=== PATIENT | male | born 1945 | race Caucasian/White ===

== ENCOUNTER 2018-06-01 06:36 | Inpatient (IN) | payer OTHER, SELFPAY ==
[2018-05-17 08:15] VITALS: BMI 35.4
[2018-06-01] VITALS (13 sets, daily range): BP systolic 94–130; BP diastolic 53–77; PULSE 60–73; RESP 12–19; TEMP 36.1–36.9; O2SAT 94–100; BMI 32.7
--- NOTE | 2018-06-01 | DI.RAD.S_ITS ---
PROCEDURE: XR LUMBAR SPINE 2-3V INDICATIONS: back surgery TECHNIQUE: 2 views of the lumbar spine were acquired. COMPARISON: [facility], CR, XR LUMBAR SPINE 2 OR 3 VIEWS, 03/22/2018, 14:44. FINDINGS: Bones: AP and lateral images were obtained in surgery documenting placement of disc spacers at L2-3, L3-4, L4-5 and L5-S1. Posterior fusion with transpedicular screws and vertical connecting rods bilaterally L2-S1 Soft tissues: Overlying bowel gas pattern is normal. No suspicious soft tissue calcifications. IMPRESSION: Intraoperative imaging of posterior discectomy and fusion L2-3 through L5-S1 Dictated by: Anish Azar M.D. on 06/01/2018 at 15:23 Approved by: Anish Azar M.D. on 06/01/2018 at 15:25
[2018-06-01] MEDS: LACTATED RINGERS 1,000 ML 42 ML IV ×2 (07:20→11:25)
--- NOTE | 2018-06-01 07:28 | PM.PREOP ---
Pre-operative Note Interval Note Pre-op Check: Yes History & Physical Reviewed by Physician and Yes Exam Performed Changes: No
--- NOTE | 2018-06-01 07:52 | P.OP_ITS ---
Operative Date/Time/Diagnoses Date of procedure: 06/01/18 Time of procedure: 15:30 Pre-op diagnosis: Lumbar stenosis with radiculopathy History of lumbar laminectomy Post-op diagnosis: same Procedure & Clinicians Procedure: L2-3, L3-4, L4-5 anterior fusion with cages L2-3, L3-4 L4-5 posterior fusion L2, L3, L4, L5, S1 screws L5-S1 TLIF (post/post innerbody fusion) with cage Iliac crest bone graft L2-3, L3-4, L5-S1 laminectomies Revision laminectomy L4-5 Use of microscope Placement of epidural catheter Microscope Same procedure as scheduled: Yes Indications: [age] year old male with intractable pain from lumbar stenosis. He had failed conservative management and requested operative intervention. Risks and benefits of surgery were discussed and appropriate consents were obtained. Surgeon: Garry Juárez Senior Communications Specialist: Meredith Fletcher Anesthesia Type: General Operative Notes Findings: none Closure Type: primary Specimen(s): none sent Implants & Drains: NuVasive Reline and Reline MAS screws NuVasive XLIF cages Globus Rise cage Applied: catheter Estimated Blood Loss (mL): 150 Procedure in detail: Patient was brought to the operating room and intubated on the table. Time-out was performed. They were then rolled over to the lateral decubitus position with the [id number]. The table was bent and they were taped down in the correct position. X-rays were taken to confirm a true AP and lateral. Preoperative antibiotics were given. The left flank was prepped and draped in standard sterile fashion. Using fluoroscopy, a 3 cm incision was made above the iliac crest. We bluntly dissected down with Metzenbaum scissors and split the 3 abdominal muscle layers. We dissected out the retroperitoneal space and using finger guidance, brought our 1st dilator down to the psoas muscle. Using neuromonitoring and fluoroscopy, we placed it through the psoas onto the L4-5 disc space in an anterior position and gradually pulled the dilator posteriorly along the disc space. We placed our guidewire and measured our depth for the retractor. We then dilated with the next 2 dilators and then placed our retractor over the dilators. Position was confirmed with fluoroscopy and the retractor was locked down to the bar. We opened up the retractor and checked with neuro monitoring. We then placed the josé antonio and again checked with neuro monitoring. The retractor was opened further and the ALL retractor was placed. An annulotomy was performed. We then performed a complete diskectomy with ring curette, pituitary, box osteotome. A Palmer was advanced across the disc space under fluoroscopy to release the lateral annulus on the opposite side. We then used sequentially larger trials and confirmed under fluoroscopy. An XLIF cage was packed with Osteocell bone graft and impacted into the L4-5 disc space with fluoroscopy for the anterior fusion at this level. The wound was irrigated. The retractor was closed down. The josé antonio was removed. We carefully removed the retractor with direct visualization to make sure there was no neurovascular or abdominal injury. X- rays were taken. We then went up to the L3-4 level and again dilated, locked our retractor, performed a complete diskectomy with lateral release and placed our cage with bone graft for the anterior fusion at L3-4. We carefully removed the retractor and took x-rays. We then went up to the L2-3 level and again dilated, locked the retractor, performed a complete diskectomy with lateral release, and placed our cage with bone graft to the anterior fusion at L2-3. We then carefully removed the retractor and took final x-rays. The muscle fascia was closed, superficial tissue was closed. The skin was closed. Sterile dressing was placed. The patient was then rolled over on the well-padded prone position on the Twin table. Using fluoroscopy for localization, a 12 cm incision was made in the midline. We dissected down the right sided paraspinal muscles to expose the lamina and confirmed our position. We then exposed the transverse processes at the level of fusion. We then began placing our screws. A bur was used to decorticate the junction of the facet and transverse process. We then advanced a gear shifter down the pedicle using neuro monitoring. We checked with the ball probe to confirm a floor and 4 stephens on the pedicle. We then tapped also with neuro monitoring. We checked again with the ball probe and then placed our screw with neuro monitoring. The screws were placed in this fashion down the right pedicles of L2, L3, L4, L5, and S1. A small provisional sam was placed at L5-S1 and the set screws were loosely applied. We then brought in the microscope. A laminectomy was performed at L5-S1 with a bur and Kerrison rongeurs. We carefully depressed the dura to reach to the opposite side and decompress the entire central canal. We cleared out the neural foramen. In the end the ball probe could be placed cephalad and caudally across to the opposite side in the foramen and everything was opened. We then went up to L4-5. He had had a previous laminectomy at this level which had some midline scarring but we were able to perform a right-sided revision laminectomy and clear out to the midline as well as out the neural foramen. We then went up and performed laminectomies as well at L2-3 and L3-4. At the end we could sweep the ball probe cephalad caudally and out to the neural foramen across the opposite side and everything was cleared. We then began doing our interbody work. The dura was carefully retracted medially at L5-S1 and bipolar was used for hemostasis. We used a scalpel to perform an annulotomy. We tried advancing the paddle into this hole but our angle was wrong and we went into the L5 bone just above the endplate. We checked under xray and then changed our angle down to the disc. We then performed a complete diskectomy with a combination of pituitaries, curettes, Serafin and rasps. We used the paddles to expand the disc space and then locked the sam in this position. We then packed the disc space full of bone graft. The globus Rise cage was placed and expanded under fluoroscopy and then we added more bone graft. This completed the posterior interbody portion of the TLIF at L5S1. We removed the temporary short sam and then placed a full sam from L2 through S1 and locked it down with set screws. The wound was copiously irrigated. A small stab incision was made over the PSIS and a Jamshidi needle was placed into the iliac crest and several mL of bone marrow was aspirated. This was mixed with our locally harvested bone graft as well as the remaining Osteocell and bone chips and placed in the posterolateral gutter for fusion at L2-3, L3-4, L4-5 and the posterolateral portion of the TLIF at L5-S1. An epidural catheter was primed with 4mL of 0.5% bupivacaine, 100 mcg fentanyl, 4 mg Duramorph, 1 mg Stadol. The dura was depressed under the cephalad lamina with a ball probe and the epidural catheter was gently advanced 6 cm cephalad. The fascia was then closed. The epidural was then injected without resistance. The catheter was pulled and we closed more over the fascia. We then went over to the left side and using fluoroscopy made a 10 cm incision. We split down to the fascia. We then percutaneously placed Jamshidi needles down the L2, L3, L4, L5, and S1 pedicles using fluoroscopy and neuro monitoring. We changed to guidewires and then tapped and then placed our MAS Reline screws. A sam was placed and the set screws were locked down. Final x- rays were taken. Wounds were irrigated. The fascia was closed on the left. Vancomycin powder was placed in the wounds. The superficial and skin were closed. Sterile dressing was placed. The patient was then rolled over, extubated, brought to the recovery room with no complications. Complications: none Condition: stable Disposition: PACU Plan for aftercare: Inpatient. Up with physical therapy.
[2018-06-01] MEDS: CLINDAMYCIN 900 MG/50 ML PIGGYBACK 50 MG IV ×2 (07:55→17:32)
--- NOTE | 2018-06-01 08:40 | SUR.OPER ---
Right lateral on padded OR table. Head on pillow, gel axillary roll, pillow to support left arm. Legs flexed, pillows between legs, gel pad under down leg and ankle. Multiple passes of 3 inch cloth tape across shoulder, hip, upper and lower legs to secure patient on OR table.
--- NOTE | 2018-06-01 08:40 | SUR.OPER ---
Prone on spine table, head in foam head support, padded chest and pelvic supports, gel pad at knees, lower legs supported by pillows; nipples, genitalia and toes free of pressure, arms secured on foam padded arm boards at <90 degrees abduction. Tape over blanket at thigh secured to table.
[2018-06-01] MEDS: THROMBIN (BOVINE) 5,000 UNIT VIAL 5000 UNIT TOP (09:09)
[2018-06-01] MEDS: BUPIVACAINE 0.5% (PF) 4 ML, MORPHINE-PF 4 MG, BUTORPHANOL 1 MG, fentaNYL 100 MCG INJ (09:14)
[2018-06-01] MEDS: VANCOMYCIN 1,000 MG VIAL 1000 MG TOP (09:17)
[2018-06-01] MEDS: SODIUM CHLORIDE 0.9% 1,000 ML, GENTAMICIN 80 MG IRR (09:19)
--- NOTE | 2018-06-01 11:51 | SUR.OPER ---
first part of case ..lateral position completed at 0950. Patient turned supine then prone on Twin Table
[2018-06-01] MEDS: LACTATED RINGERS 1,000 ML 125 ML IV (17:32)
--- NOTE | 2018-06-01 17:43 | PC.NURSE ---
Addendum entered by Bianca Baker R.N. 06/01/18 19:10: Dr Matias notified via phone of patient's low BP's, and that I held 1700 dose of Metoprolol, Imdur & Ramipril. She ordered to hold BP meds for Systolic BP less than 100. I also notified her of need for 3L O2, she verified that patient has IVF infusing. No other orders at this time. Patient is more awake now, speaking in full sentences, sometimes slurred. Taking bites of pudding & drinking ice water. Medicated patient with 2 tabs Lingle for back pain rated 8/10. Original Note: Post-op notes: J Luis brought from PACU via bed, awake, eyes open, staring at ceiling, face & lips very pale, upper lip edematous. Red skin proximal to right brow, extending to center forehead, per CARE DIRECTOR RN this is probably due to prone positioning during surgery. Saying few words, speech slurred, he reports dry throat. Can answer questions appropriately, answering slowly and answers sometimes delayed 2-[address] & situation. Respirations 12/minute, shallow, instructed deep breathing often, IS given, at bedside assisting to help keep him awake. RA oxygen at time of admit was 96%, did desat shortly after that to 80% 2L applied, sats increasing to 93% when dozing, 98% when awake & talking. RT in room to assess & help troubleshoot continuous pulse ox, increased O2 to 3L at that time. Tolerating few ice chips and denies nausea. HOB at 45 degrees. BP at admit 113/66. At 1730 was 98/43. After repositioning with HOB flat, BP up to 98/64. He denies any vision changes or dizziness. LR infusing at 125 ml/hour to RFA, antibiotic also infusing per orders. [place] patent with clear zulay urine. Back drsg with gauze drsg that is CDI. Left flank gauze drsg also CDI. He reports tingling to his left foot, extremities are warm, he has good CMS otherwise. Foot SCD's on bilaterally. Pt oriented to room & call button. This nurse checking on patient every 5-10 minutes due to report of long time under anesthesia, paleness, hypotension and oxygen saturation. J Luis's and son visiting at bedside.
[2018-06-01] MEDS: CELECOXIB 200 MG CAPSULE 400 MG PO (18:45)
[2018-06-01] MEDS: ATORVASTATIN 20 MG TABLET 40 MG PO (18:46)
[2018-06-01] MEDS: HYDROCODONE/ACET 5/325 TABLET 2 TAB PO (18:46)
[2018-06-01] MEDS: PANTOPRAZOLE 20 MG TABLET PO (18:46)
[2018-06-01] MEDS: DOCUSATE 100 MG CAPSULE PO (20:30)
[2018-06-01] MEDS: HYDROMORPHONE 0.5 MG INJ IV (20:32)
[2018-06-01] MEDS: HYDROCODONE/ACET 5/325 TABLET 1 TAB PO (23:26)
[2018-06-01] MEDS: hydrOXYzine pamoate 25 MG CAPSULE PO (23:27)
--- NOTE | 2018-06-01 23:51 | PC.NURSE ---
Addendum entered by Erna Moncada R.N. 06/02/18 07:02: Have assisted patient to reposition q2h during night. Noted increase in drainage on back dressing this morning but no leakage. States pain is tolerable at 4/10. Is now on RA and has been maintaining sats > 94% for past several hours. Original Note: Addendum entered by Erna Moncada R.N. 06/02/18 04:16: Medicated with Vistaril + Vicodin for 5/10 pain in back and right leg. Original Note: Alert and oriented. Breath sounds CTA with sat of 99% on 1L/min oxygen per NC. HRR. Denies nausea. BT present but denies flatus. Indwelling catheter is patent with clear, dark yellow urine. Dressing to back with 2 small spots sanguinous drainage at left edge; outlined. Dressing to left hip/flank CDI. 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 Able to turn with some assistance. Wearing bilateral footie SCD's. States pain is 5/10; medicated with Vicodin + Vistaril. Fall risk score is high and bed alarm is activated.
[2018-06-02] VITALS (9 sets, daily range): BP systolic 85–142; BP diastolic 43–83; PULSE 59–85; RESP 16–18; TEMP 36.3–37.2; O2SAT 93–97
[2018-06-02] MEDS: CLINDAMYCIN 900 MG/50 ML PIGGYBACK 50 MG IV (01:12)
[2018-06-02] MEDS: LACTATED RINGERS 1,000 ML 125 ML IV (03:06)
[2018-06-02] MEDS: HYDROCODONE/ACET 5/325 TABLET 1 TAB PO ×2 (04:13→08:46)
[2018-06-02] MEDS: hydrOXYzine pamoate 25 MG CAPSULE PO ×2 (04:13→22:47)
[2018-06-02 06:00] LABS: Hematocrit 31.1 % (41-53); Hemoglobin 10.6 g/dL (13.5-17.5)
--- NOTE | 2018-06-02 07:50 | PM.PNPO.1 ---
Subjective Date Patient Seen: 06/02/18 Time Patient Seen: 07:50 Interval history: He is doing quite well. Pain level 5/10. Exam Vital Signs (past 8 hours): - 06/02/18 05:00 06/02/18 07:00 Temperature 98.2 F Pulse Rate 74 Respiratory Rate 16 Blood Pressure 108/62 Pulse Oximetry 96 94 Oxygen Delivery Method Nasal Cannula Oxygen Flow Rate 0 Const Orientation: alert and awake Back/Spine/Pelvis Other: Moderate drainage on posterior dressing. 5/5 motor both lower extremities except for mild 4/5 left hip flexor Objective Labs Result Diagrams: 06/02/18 05:26 Labs: Laboratory Results - last 24 hr 06/02/18 05:26 Hgb 10.6 L Hct 31.1 L Assessment & Plan Post-op Postoperative Procedures Operation Date: 06/01/18 07:45 Actual Procedures Side Surgeon p L2-S1 Laminectomy with Ant/Post. Instrumented Fusion w/ Bone Graft Not Applicable Garry Juárez MD overall he is doing well. Mobilize with physical therapy. Anticipate discharge after 2-3 days. Time Spent With Patient less than 15 minutes Quality VTE Deep Vein Thrombosis/Pulmonary Embolism Present on Admission: No
[2018-06-02] MEDS: ASPIRIN EC 81 MG TABLET PO (08:42)
[2018-06-02] MEDS: CELECOXIB 200 MG CAPSULE PO ×2 (08:42→20:33)
[2018-06-02] MEDS: DOCUSATE 100 MG CAPSULE PO ×2 (08:43→20:32)
--- NOTE | 2018-06-02 10:41 | PT.IIE ---
Current Diagnoses Spinal stenosis, lumbar region with neurogenic claudication (06/01/18) Strain of muscle, fascia and tendon of lower back, subsequent encounter (06/01/18) Other specified postprocedural states (06/01/18) Surgery Performed Operation Date: 06/01/18 07:45 Actual Procedures p L2-S1 Laminectomy with Ant/Post. Instrumented Fusion w/ Bone Graft(Not Applicable) - Garry Juárez MD Surgical History (Last Updated 05/17/18 @ 09:18 by Frannie Minor RN) Cataract extraction status of left eye (Acute ~2017) History of carpal tunnel surgery of left wrist (Acute) History of cataract surgery (Acute) History of heart surgery (Acute) History of lumbar laminectomy (Acute) History of tonsillectomy (Acute) History of vasectomy (Acute) Status post trigger finger release (Acute ~2011) Medical History (Last Updated 05/17/18 @ 09:18 by Frannie Minor RN) Arthritis (Acute) BPH (benign prostatic hyperplasia) (Acute) Burning chest pain (Acute) CAD (coronary artery disease) (Acute) Cervical fusion syndrome (Acute) GERD (gastroesophageal reflux disease) (Acute) Hearing loss (Acute) Hyperlipidemia (Acute) Hypertension (Acute) Impaired vision (Acute) Lumbar stenosis with neurogenic claudication (Acute) Numbness (Acute) Rash (Acute) Sciatica (Acute) Shortness of breath (Acute) Strain of lumbar region (Acute) Varicella (Acute) Physical Therapy Inpatient Evaluation/Re-Eval M1 PT/OT-IP Prior Functional Status Start: 06/02/18 12:02 Freq: NEEDED Status: Active Protocol: Document 06/02/18 10:41 AB (Rec: 06/02/18 12:26 AB [email or web address]) Medical Review Prior Functional Status Medical History Reviewed Yes Communication able to make needs known Mobility and Gait pt stated that he is modified independent with all mobilities and ambulation without AD but unable to ambulate far due to pain requiring frequent rest breaks Social History Household Members spouse Living Arrangements House Number of Floors (Floors) One Floor Number of Stairs To Enter/Railing? 2 steps to enter without rails but hold on to furnace for support Home Environment High Toilet Walk in Shower Built-In Shower Seat Home Equipment Front Wheel Walker Four Wheel Walker Straight Cane Grab Bars Near Toilet Employment Status Retired Additional Social History Comment plan is for son to assist pt for a few days and then grandson will assist for ~ 2 weeks M2 PT-IP Current Condition Start: 06/02/18 12:02 Freq: NEEDED Status: Active Protocol: Document 06/02/18 10:41 AB (Rec: 06/02/18 12:26 AB [email or web address]) Physical Therapy Current Condition Current Condition Evaluation Date 06/02/18 Treatment Diagnosis s/p L2-5 ant fusion w/cage, post fusion& screws; L5S1 TLIF ;diff in walking Onset Date 06/01/18 Precautions Lumbar Precautions Log Roll No Twisting Limit Bending Lifting Restriction of 10 lbs Gait Belt above Incisional Area M3 PT-IP Subjective Start: 06/02/18 12:02 Freq: NEEDED Status: Active Protocol: Document 06/02/18 10:41 AB (Rec: 06/02/18 12:26 AB [email or web address]) Subjective Physical Therapy Visit Type Type Initial Evaluation Visit Start Time 10:41 Visit Stop Time 11:20 Total Visit Minutes 39 Number of DRESSING MACHINE OPERATOR Visits 0 Physical Therapy Visit Comments Patient Comments i will try but i cannot stand and walk Therapy Pain Assessment Pain When Pain Assessed At Rest Pain Present Pain Present Pain Reported Location Lower Back Intensity 4 Scale Used Numeric (1 - 10) Pain Management Techniques Re-positioning Timing of Activity with Medications M4 PT-IP Mobility and Gait Start: 06/02/18 12:02 Freq: NEEDED Status: Active Protocol: Document 06/02/18 10:41 AB (Rec: 06/02/18 12:26 AB [email or web address]) PT-Bed Mobility Assessment Rolling Type of Rolling Log Rolling Level of Assist Maximal Assistance Supine to Sit Supine to Sit Maximum Assistance 1 Person Assistance PT-Transfer Assessment Sit to and From Stand Sit to and from Stand Moderate Assistance 2 Person Assistance Use of Upper Extremities Equipment Transfer Assistive Device Gait Belt Front Wheeled Walker Orthotic/Prosthetic Devices or Brace: No Transfers Transfer Destination Chair Transfer Technique Stand Step Pivot Transfer Ability Level of Assist Moderate Assistance 2 Person Assistance Use of Upper Extremities Gait Assessment Gait Gait Assistance Required: Moderate Assistance 2 Person Assist Distance (Feet) (feet) 8 Able to Maintain Weight Bearing Status Yes During Gait Assistive Devices Assistive Device Gait Belt Front Wheeled Walker Orthotic/Prosthetic Devices or Brace: No Gait Deviations General Gait Pattern Decreased Stride Length Decreased Feet Clearance Factors Limiting Gait Function Factors Limiting Gait Function Decreased Activity Tolerance Decreased Strength Limited Range of Motion Pain Poor Balance Poor Safety Awareness Comments Gait Comments pt with increase weight bearing throught bilateral heels with hyperextension of B knee during standing and ambulation. pt stated that he usually walks and puts more weight on his heels prior to surgery PT-Balance Assessment Sitting Balance and Reactions Static Sitting Balance Ability Good Dynamic Sitting Balance Ability Good Standing Balance and Reactions Static Standing Balance Ability Fair Dynamic Standing Balance Ability Poor Device Used FWW M5 PT-IP Objective Assessments Start: 06/02/18 12:02 Freq: NEEDED Status: Active Protocol: Document 06/02/18 10:41 AB (Rec: 06/02/18 12:26 AB [email or web address]) Orientation Orientation/Cognition Level of Alertness Alert Orientation Name Age Birthday Month Date Year Day of Week Place Situation Safety Awareness Understands Safety Issues Strength Lower Extremity Strength Assessment Bilaterally Impaired Knee 3-/5 Comments Strength Comments LLE weaker than RLE Sensation Assessment Sensation Gross Sensation Left LE Impaired Sensation Description Tingling Comments Sensation Comments tingling anterior foot and lateral lower leg M6 PT-IP Treatment Start: 06/02/18 12:02 Freq: NEEDED Status: Active Protocol: Document 06/02/18 10:41 AB (Rec: 06/02/18 12:26 AB [email or web address]) Physical Therapy Treatment Exercises Exercises Heel Slides Education Education Provided Precautions Weight Bearing Status Post-Op Packet Safety M7 PT-IP Assessment and Plan Start: 06/02/18 12:02 Freq: NEEDED Status: Active Protocol: Document 06/02/18 10:41 AB (Rec: 06/02/18 12:26 AB [email or web address]) PT Summary Assessment and Plan Potential Rehabilitation Potential Fair Status of Condition at Evaluation Evolving Summary Impairments Pain ROM Strength Balance Coordination Sensation Tone Cognition Bed Mobility Transfers Gait Activity Tolerance Assessment Summary pt requiring 2 person assist at this time. d/c plan depending on pt's progress. will conduct caregiver training and stair climbing training when appropriate. will continue to assess. Goals Bed Mobility Goal Standby Assistance Transfer Goal Standby Assistance Front Wheeled Walker Gait Goal Standby Assistance Front Wheel Walker Gait Distance 150 Other Goals up/down 2 steps without rails Days to Meet Goals 3 Frequency of Treatment Frequency Of Treatment Twice a Day Treatment Plan Physical Therapy Treatment Plan Bed Mobility Training Transfer Training Gait Training Therapeutic Exercise Balance Retraining Post Op Education Discharge Planning Hot or Cold Pack Neuromuscular Re-ed Coordination Retraining Manual Therapy Other Recommendations and Next Treatment ambulation; bed mobility and Focus transfers, caregiver training Recommendations To Nursing Amount of Assist Needed 2 Person Assist Discharge Recommendations PT Discharge Recommendations Home with 24/7 Assist Home Health SNF Rehab Other Discharge Recommendations SNF vs home with 24/7 and homehealth
[2018-06-02] MEDS: [UNRECOGNIZED DRUG - REMARK] PO ×2 (11:26→20:32)
[2018-06-02] MEDS: HYDROCODONE/ACET 5/325 TABLET 2 TAB PO ×3 (12:33→20:35)
--- NOTE | 2018-06-02 12:34 | OT.IP.EVAL ---
Current Diagnoses Spinal stenosis, lumbar region with neurogenic claudication (06/01/18) Strain of muscle, fascia and tendon of lower back, subsequent encounter (06/01/18) Other specified postprocedural states (06/01/18) Surgery Performed Operation Date: 06/01/18 07:45 Actual Procedures p L2-S1 Laminectomy with Ant/Post. Instrumented Fusion w/ Bone Graft(Not Applicable) - Garry Juárez MD Past Medical History (Last Updated 05/17/18 @ 09:18 by Frannie Minor RN) Arthritis (Acute) BPH (benign prostatic hyperplasia) (Acute) Burning chest pain (Acute) CAD (coronary artery disease) (Acute) Cervical fusion syndrome (Acute) GERD (gastroesophageal reflux disease) (Acute) Hearing loss (Acute) Hyperlipidemia (Acute) Hypertension (Acute) Impaired vision (Acute) Lumbar stenosis with neurogenic claudication (Acute) Numbness (Acute) Rash (Acute) Sciatica (Acute) Shortness of breath (Acute) Strain of lumbar region (Acute) Varicella (Acute) Surgical History (Last Updated 05/17/18 @ 09:18 by Frannie Minor RN) Cataract extraction status of left eye (Acute ~2016) History of carpal tunnel surgery of left wrist (Acute) History of cataract surgery (Acute) History of heart surgery (Acute) History of lumbar laminectomy (Acute) History of tonsillectomy (Acute) History of vasectomy (Acute) Status post trigger finger release (Acute ~2011) Occupational Therapy Inpatient Evaluation/Re-Eval M1 PT/OT-IP Prior Functional Status Start: 06/02/18 12:02 Freq: NEEDED Status: Active Protocol: Document 06/02/18 10:41 AB (Rec: 06/02/18 12:26 AB [email or web address]) Medical Review Prior Functional Status Medical History Reviewed Yes Communication able to make needs known Mobility and Gait pt stated that he is modified independent with all mobilities and ambulation without AD but unable to ambulate far due to pain requiring frequent rest breaks Social History Household Members spouse Living Arrangements House Number of Floors (Floors) One Floor Number of Stairs To Enter/Railing? 2 steps to enter without rails but hold on to furnace for support Home Environment High Toilet Walk in Shower Built-In Shower Seat Home Equipment Front Wheel Walker Four Wheel Walker Straight Cane Grab Bars Near Toilet Employment Status Retired Additional Social History Comment plan is for son to assist pt for a few days and then grandson will assist for ~ 2 weeks M1 PT/OT-IP Prior Functional Status Start: 06/02/18 12:02 Freq: NEEDED Status: Active Protocol: Document 06/02/18 11:30 [facility] (Rec: 06/02/18 12:34 [facility] [id number]) Medical Review Prior Functional Status Medical History Reviewed Yes Communication Independent. Mobility and Gait Pt states independent but moved slowly. Activities of Daily Living and IADL's Increased time. Social History Household Members spouse Living Arrangements House Number of Floors (Floors) One Floor Number of Stairs To Enter/Railing? 2 steps with no railing used furnace for support while going up the stairs. Home Environment High Toilet Walk in Shower Built-In Shower Seat Home Equipment Front Wheel Walker Four Wheel Walker Straight Cane Long Handled Sponge Long Handled Shoe Horn Cake Former Grab Bars Near Toilet Additional Social History Comment able to assist at home, in addition son to stay a few days and then grandson able to assist for two weeks. M2 OT-IP Current Condition Start: 06/02/18 12:02 Freq: Status: Active Protocol: Document 06/02/18 11:30 [facility] (Rec: 06/02/18 12:34 [facility] [id number]) Occupational Therapy Current Condition Current Condition Evaluation Date 06/02/18 Treatment Diagnosis Lumbar stenosis Diagnosis Onset Date 06/01/18 Post Operative Precautions Lumbar Precautions Log Roll No Twisting Limit Bending Lifting Restriction of 10 lbs Gait Belt above Incisional Area Weight Bearing Status Weight Bearing Status Weight Bear as Tolerated M3 OT- IP Subjective and Pain Start: 06/02/18 12:02 Freq: Status: Active Protocol: Document 06/02/18 11:30 [facility] (Rec: 06/02/18 12:34 [facility] [id number]) OT- Subjective Occupational Therapy Visit Type Type Initial Evaluation Visit Start Time 10:35 Visit Stop Time 11:30 Total Visit Minutes 55 Occupational Therapy Visit Comments Patient Comments Pt apprehensive for getting up . Patient/Caregiver Goals Pt states would like to go home when medically stable. M4 OT- IP ADL's Start: 06/02/18 12:02 Freq: Status: Active Protocol: Document 06/02/18 11:30 [facility] (Rec: 06/02/18 12:34 [facility] [id number]) OT ADL-Dressing General Eval Lower Body Dressing Ability Maximum Assistance Areas Needing Assistance Socks Comments OT Dressing Comments Pt educated on AED for LB dressing and able to lora/doff socks with scientific systems analyst and sock aid. M6 OT- IP Functional Cognition Start: 06/02/18 12:02 Freq: Status: Active Protocol: Document 06/02/18 11:30 [facility] (Rec: 06/02/18 12:34 [facility] [id number]) Cognitive Factors Limiting Selfcare Function Cognitive Ability Level of Alertness Alert Patient Orientation Name Age Birthday Month Date Year Day of Week Place Situation Attention Span Ability Capable of Focused Attention Capable of Sustained Attention Ability to Follow Commands Able to Follow One Step Commands Memory Description Short Term Impaired Safety Awareness Decreased Recall of Precautions Decreased Ability to Apply Precautions Cognitive Comments Cognitive Assessment Comments Pt not able to recall back precautions and needing vc to hand placement, FWW safety, pt a bit impulsive and needing concrete commands. OT- Vision and Hearing OT- Hearing Assessment OT- Hearing Assessment WFL M7 OT- IP Mobility and Balance Start: 06/02/18 12:02 Freq: Status: Active Protocol: Document 06/02/18 11:30 [facility] (Rec: 06/02/18 12:34 [facility] [id number]) OT- Bed Mobility Assessment Rolling Type of Rolling Roll to Right Level of Assistance Maximum Assistance 1 Person Assistance Supine to Sit Supine to Sit Assist Maximum Assistance 1 Person Assistance OT-Transfer Assessment Sit to and From Stand Sit to and from Stand Moderate Assistance 2 Person Assistance Transfers Transfer Ability Moderate Assistance 2 Person Assistance Technique Transfer Destination Chair Transfer Technique Stand Step Pivot Devices Transfer Assistive Devices Gait Belt Front Wheeled Walker Comments Mobility Comments Pt left leg a bit unsteady and vc to keep legs straight while taking steps. Pt heavy use of BUE on FWW in addition to two person assist for balance, FWW guidance. OT- Balance Assessment Sitting Balance and Reactions Static Sitting Balance Ability Normal Dynamic Sitting Balance Ability Fair Standing Balance and Reactions Static Standing Balance Ability Fair M8 OT- IP Objective Assessments Start: 06/02/18 12:02 Freq: Status: Active Protocol: Document 06/02/18 11:30 [facility] (Rec: 06/02/18 12:34 [facility] [id number]) OT Gross Range of Motion Upper Extremity Range of Motion Assessment Within Functional Limits OT Strength Comments Strength Comments BUE LUE4-/5, RUE4/5 OT Sensation Assessment Comments Summary Comments WFL for light touch. M9 OT- IP Assessment and Plan Start: 06/02/18 12:02 Freq: Status: Active Protocol: Document 06/02/18 11:30 [facility] (Rec: 06/02/18 12:34 [facility] [id number]) OT Summary Assessment and Plan Potential Rehabilitation Potential Good Analytic Complexity at Evaluation Low Summary OT Impairments Pain Strength Balance Functional Cognition Functional Mobility Grooming Dressing Toileting Bathing Toilet Transfers Shower Transfers Progress Towards Goals Slow Progress due to Pain Slow Progress due to Medical Issues Slow Progress due to Activity Tolerance Slow Progress due to Cognition Assessment Summary Pt main barrier is steps, pain , and now needing extensive assist for all ADL's and functional mobility. Pt has good family support at home and looking to go home when medically stable and after family training has been completed. Goals Grooming Goal Standby Assistance Dressing Goal Minimal Assistance Toileting Goal Contact Guard Assistance Bathing Goal Minimal Assistance Toilet Transfer Goal Contact Guard Assistance Shower Transfer Goal Minimal Assistance Patient/Caregiver Education Goal Demonstrate Post-Op Precautions Caregiver Independent Assisting Patient Days to Meet Goals 7 Frequency of Treatment Frequency Of Treatment Once a Day Treatment Plan OT Treatment Plan ADL Training Functional Cognition Training Functional Mobility Patient/Family Education Discharge Planning Other Treatment Recommendations and Next Standing by sink for grooming, Treatment Focus practice AED for LB dressing, caregiver training. Discharge Recommendations OT Discharge Recommendations Home with Assistance Home Equipment Needs shower chair, HHSP
--- NOTE | 2018-06-02 13:49 | CM.DANOTE ---
Patient is a 72 year old male who was admitted on 06/01/18 for Lumbar Fusion. Pt has [employer] M[employer] ADV for insurance and his PCP is Dr. Howard. EMR was reviewed. Per MD, pt likely needing another 2-3 days but tolerated procedure well. Per PT, pt currently requiring 2PA with hopeful progress towards home pending pain and mobility. SW met bedside with pt and spouse and explained role and they confirmed that they live at home on [address] and pt is Independent with ADL's at baseline. Pt's DPOA is on file now since spouse brought in a copy. Pt denies any hx of HH or SNF and states his preference is to d/c home with spouse assist and adult son to stay the first couple days for support and then his grandson to stay for 2 weeks. Pt confirms that he would be agreeable to HH if recommended. Plan: SW to follow closely after further PT/OT towards determining if pt will progress enough to safely d/c home with family support when medically stable. EFREN Sorensen Discharge Planning/Care Management CM Discharge Assessment Start: 06/02/18 13:45 Freq: Status: Active Protocol: Document 06/02/18 13:46 [facility] (Rec: 06/02/18 13:48 [facility] [id number]) Discharge Planning Assessment Assigned Gauge Checker EFREN DPOA/Assigned Designee Name Contact Information [phone] Advance Directives? Yes Advance Directives on File Yes History Provided By Patient Significant Other Medical Record Has Patient been admitted in last 30 No days? Prior Living Arrangements House Household Members spouse Type of transporation used prior to Drives own vehicle admit Independent with ADL's Yes Is patient alert and oriented? Yes Caregiver for Another No Patient/Family Preference Home with Home Health Comment Pt preference is home, would be agreeable to HH if needed. Barriers to Discharge No Discharge Plan Home Community Services Physical Therapy Transportation Arrangement Pt's spouse and adult son can provide transport at d/c. Referrals Initiated None needed Additional Comment Waiting for further PT to determine pt's progress and needs. Inpatient Status as of 06/02/18 Whiteboard Updated in Patient Room with Yes name and ext. # of Gauge Checker Review Status In Process Next Review Date 06/03/18 Next Review Type Continued Stay Review
--- NOTE | 2018-06-02 14:05 | PT.IPTN ---
Current Diagnoses Spinal stenosis, lumbar region with neurogenic claudication (06/01/18) Strain of muscle, fascia and tendon of lower back, subsequent encounter (06/01/18) Other specified postprocedural states (06/01/18) Surgery Performed Operation Date: 06/01/18 07:45 Actual Procedures p L2-S1 Laminectomy with Ant/Post. Instrumented Fusion w/ Bone Graft(Not Applicable) - Garry Juárez MD Physical Therapy Treatment Note M2 PT-IP Current Condition Start: 06/02/18 12:02 Freq: NEEDED Status: Active Protocol: Document 06/02/18 10:41 AB (Rec: 06/02/18 12:26 AB [email or web address]) Physical Therapy Current Condition Current Condition Evaluation Date 06/02/18 Treatment Diagnosis s/p L2-5 ant fusion w/cage, post fusion& screws; L5S1 TLIF ;diff in walking Onset Date 06/01/18 Precautions Lumbar Precautions Log Roll No Twisting Limit Bending Lifting Restriction of 10 lbs Gait Belt above Incisional Area M3 PT-IP Subjective Start: 06/02/18 12:02 Freq: NEEDED Status: Active Protocol: Document 06/02/18 14:05 AB (Rec: 06/02/18 16:59 AB [email or web address]) Subjective Physical Therapy Visit Type Type Treatment Note Visit Start Time 14:05 Visit Stop Time 14:30 Total Visit Minutes 25 Number of PURCHASE PRICE ANALYST Visits 0 Physical Therapy Visit Comments Patient Comments pt agreeable to do therapy Therapy Pain Assessment Pain When Pain Assessed At Rest Pain Present Pain Present Pain Reported Location bilateral hips Intensity 6 Scale Used Numeric (1 - 10) Pain Management Techniques Apply Cold Re-positioning M4 PT-IP Mobility and Gait Start: 06/02/18 12:02 Freq: NEEDED Status: Active Protocol: Document 06/02/18 14:05 AB (Rec: 06/02/18 16:59 AB [email or web address]) PT-Bed Mobility Assessment Supine to Sit Supine to Sit Moderate Assistance 1 Person Assistance Sit to Supine Sit to Supine Moderate Assistance 1 Person Assistance PT-Transfer Assessment Sit to and From Stand Sit to and from Stand Moderate Assistance Maximum Assistance 1 Person Assistance Equipment Transfer Assistive Device Gait Belt Front Wheeled Walker Gait Assessment Gait Gait Assistance Required: Moderate Assistance Distance (Feet) (feet) 30 Able to Maintain Weight Bearing Status Yes During Gait Assistive Devices Assistive Device Gait Belt Front Wheeled Walker Orthotic/Prosthetic Devices or Brace: No Gait Deviations General Gait Pattern Decreased Stride Length Decreased Feet Clearance Factors Limiting Gait Function Factors Limiting Gait Function Decreased Activity Tolerance Decreased Strength Pain Poor Balance Poor Safety Awareness Comments Gait Comments pt with bilateral knee hyperextension during standing and ambulation. pt required mod A with ambulation and another person SBA for safety. M5 PT-IP Objective Assessments Start: 06/02/18 12:02 Freq: NEEDED Status: Active Protocol: Document 06/02/18 14:05 AB (Rec: 06/02/18 16:59 AB [email or web address]) Orientation Orientation/Cognition Level of Alertness Alert M6 PT-IP Treatment Start: 06/02/18 12:02 Freq: NEEDED Status: Active Protocol: Document 06/02/18 14:05 AB (Rec: 06/02/18 16:59 AB [email or web address]) Physical Therapy Treatment Education Education Provided Precautions Safety M7 PT-IP Assessment and Plan Start: 06/02/18 12:02 Freq: NEEDED Status: Active Protocol: Document 06/02/18 14:05 AB (Rec: 06/02/18 16:59 AB [email or web address]) PT Summary Assessment and Plan Potential Rehabilitation Potential Fair Summary Impairments Pain ROM Strength Balance Coordination Sensation Tone Bed Mobility Transfers Gait Activity Tolerance Progress Towards Goals Slow Progress due to Pain Slow Progress due to Medical Issues Slow Progress due to Activity Tolerance Assessment Summary pt requires 1-2 person assist with mobility. caregiver training set up for tomorrow at 930 am/10am with spouse and pt's son. d/c plan depending if family will be able to safely assist pt at home. pt also has 2 steps to enter the house without rails. will also need to conduct stair climbing training prior to d/c if pt is going home. Goals Bed Mobility Goal Standby Assistance Transfer Goal Standby Assistance Front Wheeled Walker Gait Goal Standby Assistance Front Wheel Walker Gait Distance 150 Other Goals up/down 2 steps without rails Days to Meet Goals 3 Frequency of Treatment Frequency Of Treatment Twice a Day Treatment Plan Physical Therapy Treatment Plan Bed Mobility Training Transfer Training Gait Training Therapeutic Exercise Balance Retraining Post Op Education Discharge Planning Hot or Cold Pack Neuromuscular Re-ed Coordination Retraining Manual Therapy Other Recommendations and Next Treatment ambulation; bed mobility and Focus transfers, caregiver training Recommendations To Nursing Amount of Assist Needed 2 Person Assist Discharge Recommendations PT Discharge Recommendations Home with 11/05 Assist Home Health SNF Rehab Other Discharge Recommendations SNF vs home with 24/7 and homehealth
[2018-06-02] MEDS: ISOSORBIDE MONONITRATE ER 30 MG TABLET PO (17:06)
[2018-06-02] MEDS: RAMIPRIL 5 MG CAPSULE 10 MG PO (17:06)
[2018-06-02] MEDS: ATORVASTATIN 20 MG TABLET 40 MG PO (17:06)
[2018-06-02] MEDS: METOPROLOL ER 50 MG TABLET PO (17:07)
[2018-06-02] MEDS: SENNOSIDES 8.6 MG TABLET 17.2 MG PO (20:33)
--- NOTE | 2018-06-02 23:51 | PC.NURSE ---
Addendum entered by Erna Moncada R.N. 06/03/18 06:22: Catheter removed this morning. Instructed in sx/prevention of UTI. Tolerated removal without difficulty. Pericare provided Original Note: Addendum entered by Erna Moncada R.N. 06/03/18 03:01: Medicated with Vicodin + Vistaril for complaint of back/right buttock pain. Declined offer of ice pack. Original Note: Alert and oriented. Breath sounds CTA with RA sat of 95%. HRR. BP low at 89/51 but states his BP trends low with SBP 80-90; is asymptomatic. Denies nausea. BT present and is passing flatus. Indwelling catheter is patent with clear yellow urine in bag; is aware catheter is to be removed in morning. Dressing to back is intact with 50% saturated serosanguinous drainage but no leakage. Dressing to left hip is CDI. Is able to turn with assist for pillows. 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 Wearing bilateral footie SCD's. Fall risk score is high and bed alarm is activated. States pain is 4/10 and has improved since last pain med at 3075.
[2018-06-03] MEDS: HYDROCODONE/ACET 5/325 TABLET 1 TAB PO (02:59)
[2018-06-03] MEDS: hydrOXYzine pamoate 25 MG CAPSULE PO (02:59)
[2018-06-03 05:57] VITALS: BP 87/52; PULSE 59; RESP 16; TEMP 36.7; O2SAT 98
[2018-06-03 07:20] VITALS: BP 112/65; PULSE 65; RESP 14; TEMP 36.7; O2SAT 94
[2018-06-03 08:08] LABS: Hematocrit 25.8 % (41-53); Hemoglobin 8.9 g/dL (13.5-17.5)
[2018-06-03] MEDS: CELECOXIB 200 MG CAPSULE PO ×2 (08:18→20:01)
[2018-06-03] MEDS: DOCUSATE 100 MG CAPSULE PO ×2 (08:18→20:01)
[2018-06-03] MEDS: ASPIRIN EC 81 MG TABLET PO (08:18)
[2018-06-03] MEDS: HYDROCODONE/ACET 5/325 TABLET 2 TAB PO ×2 (08:18→11:58)
[2018-06-03 08:20] LABS: BUN Creatinine Ratio 21.3 (6-22); Blood Urea Nitrogen 17 mg/dL (9-20); Calcium 8.3 mg/dL (8.4-10.2); Carbon Dioxide 30 mmol/L (22-32); Chloride 105 mmol/L (98-107); Estimated Glomerular Filt Rate > 60.0 mL/min (>60); Glucose 118 mg/dL (80-110); HEMOLYSIS < 15 (0-50); Potassium 3.7 mmol/L (3.4-5.1); Sodium 140 mmol/L (137-145)
[2018-06-03] MEDS: SODIUM CHLORIDE 0.9% FLUSH 10 ML IV (08:22)
[2018-06-03] MEDS: SODIUM CHLORIDE 0.9% 500 ML 1000 ML IV (08:24)
--- NOTE | 2018-06-03 09:54 | PT.IPTN ---
Current Diagnoses Spinal stenosis, lumbar region with neurogenic claudication (06/01/18) Strain of muscle, fascia and tendon of lower back, subsequent encounter (06/01/18) Other specified postprocedural states (06/01/18) Surgery Performed Operation Date: 06/01/18 07:45 Actual Procedures p L2-S1 Laminectomy with Ant/Post. Instrumented Fusion w/ Bone Graft(Not Applicable) - Garry Juárez MD Physical Therapy Treatment Note M2 PT-IP Current Condition Start: 06/02/18 12:02 Freq: NEEDED Status: Active Protocol: Document 06/02/18 10:41 AB (Rec: 06/02/18 12:26 AB [email or web address]) Physical Therapy Current Condition Current Condition Evaluation Date 06/02/18 Treatment Diagnosis s/p L2-5 ant fusion w/cage, post fusion& screws; L5S1 TLIF ;diff in walking Onset Date 06/01/18 Precautions Lumbar Precautions Log Roll No Twisting Limit Bending Lifting Restriction of 10 lbs Gait Belt above Incisional Area M3 PT-IP Subjective Start: 06/02/18 12:02 Freq: NEEDED Status: Active Protocol: Document 06/03/18 09:54 AB (Rec: 06/03/18 13:55 AB [email or web address]) Subjective Physical Therapy Visit Type Type Treatment Note Visit Start Time 09:54 Visit Stop Time 10:33 Total Visit Minutes 39 Number of WATCH CASER Visits 3 Physical Therapy Visit Comments Patient Comments pt agreeable to do therapy. spouse and son present for caregiver training Therapy Pain Assessment Pain When Pain Assessed At Rest Pain Present Pain Present Pain Reported Location Lower Back Intensity 3 Scale Used Numeric (1 - 10) M4 PT-IP Mobility and Gait Start: 06/02/18 12:02 Freq: NEEDED Status: Active Protocol: Document 06/03/18 09:54 AB (Rec: 06/03/18 13:55 AB [email or web address]) PT-Bed Mobility Assessment Rolling Type of Rolling Log Rolling Level of Assist Standby Assistance Supine to Sit Supine to Sit Minimal Assistance 1 Person Assistance Sit to Supine Sit to Supine Standby Assistance Scooting Scooting to Edge of Bed Contact Guard Assistance PT-Transfer Assessment Sit to and From Stand Sit to and from Stand Contact Guard Assistance Equipment Transfer Assistive Device Gait Belt Front Wheeled Walker Orthotic/Prosthetic Devices or Brace: No Comments Mobility Comments caregiver training conducted with son and spouse. educated on how to use safety belt. educated on how to assist pt with bed mobility and transfers. Son was able to assist pt safely with bed mobility and transfers using FWW. Gait Assessment Gait Gait Assistance Required: Contact Guard Assist Distance (Feet) (feet) 75 Able to Maintain Weight Bearing Status Yes During Gait Assistive Devices Assistive Device Gait Belt Front Wheeled Walker Orthotic/Prosthetic Devices or Brace: No Gait Deviations General Gait Pattern Decreased Stride Length Decreased Feet Clearance Factors Limiting Gait Function Factors Limiting Gait Function Decreased Activity Tolerance Decreased Sensation Decreased Strength Pain Poor Balance Poor Safety Awareness Comments Gait Comments caregiver training conducted with pt and son assisting with ambulation using FWW. pt's son was able to assist pt safely. Stair Climbing Assessment Evaluation Level of Assist On Stairs Minimal Assistance Devices Stair Climbing Assistive Devices Right Railing Technique/Endurance Stair Climbing Direction Ascend and Descend Stair Climbing Technique Step to Step Number of Steps Climbed 3 Query Text: Stair Climbing Set # Repetitions (reps) 2 Comments Stair Climbing Comments assessed stairs using bilateral rails and pt completed requiring CGA to min A and cues. completed again using R ascending and completed requiring min A and cues. son assisted pt and completed safely. M5 PT-IP Objective Assessments Start: 06/02/18 12:02 Freq: NEEDED Status: Active Protocol: Document 06/02/18 14:05 AB (Rec: 06/02/18 16:59 AB [email or web address]) Orientation Orientation/Cognition Level of Alertness Alert M6 PT-IP Treatment Start: 06/02/18 12:02 Freq: NEEDED Status: Active Protocol: Document 06/03/18 09:54 AB (Rec: 06/03/18 13:55 AB [email or web address]) Physical Therapy Treatment Education Education Provided Precautions Weight Bearing Status Post-Op Packet Safety Other Treatments Other Treatment Performed caregiver training conducted and son was able to assist pt safely with bed mobility, transfers, ambulation and stair climbing. M7 PT-IP Assessment and Plan Start: 06/02/18 12:02 Freq: NEEDED Status: Active Protocol: Document 06/03/18 09:54 AB (Rec: 06/03/18 13:55 AB [email or web address]) PT Summary Assessment and Plan Potential Rehabilitation Potential Good Summary Impairments Pain ROM Strength Balance Sensation Bed Mobility Transfers Gait Activity Tolerance Progress Towards Goals Progressing Toward Goals Assessment Summary pt progressing with mobility. caregiver training conducted and son was able to assist pt safely. pt may go home when medically stable. Goals Bed Mobility Goal Standby Assistance Transfer Goal Standby Assistance Front Wheeled Walker Gait Goal Standby Assistance Front Wheel Walker Gait Distance 150 Other Goals up/down 2 steps without rails Days to Meet Goals 3 Frequency of Treatment Frequency Of Treatment Twice a Day Treatment Plan Physical Therapy Treatment Plan Bed Mobility Training Transfer Training Gait Training Therapeutic Exercise Balance Retraining Post Op Education Discharge Planning Hot or Cold Pack Neuromuscular Re-ed Coordination Retraining Manual Therapy Recommendations To Nursing Amount of Assist Needed 1 Person Assist Discharge Recommendations PT Discharge Recommendations Home with 11/05 Assist
--- NOTE | 2018-06-03 11:01 | PC.NURSE ---
pt back dressing saturated, called doctor teddy to notify, instructed by dr to replace dressing, dressing replaced with bulky gauze and tegaderm
--- NOTE | 2018-06-03 11:11 | OT.IP.TRT ---
Current Diagnoses Spinal stenosis, lumbar region with neurogenic claudication (06/01/18) Strain of muscle, fascia and tendon of lower back, subsequent encounter (06/01/18) Other specified postprocedural states (06/01/18) Surgery Performed Operation Date: 06/01/18 07:45 Actual Procedures p L2-S1 Laminectomy with Ant/Post. Instrumented Fusion w/ Bone Graft(Not Applicable) - Garry Juárez MD Occupational Therapy Treatment Note M2 OT-IP Current Condition Start: 06/02/18 12:02 Freq: Status: Active Protocol: Document 06/02/18 11:30 [facility] (Rec: 06/02/18 12:34 [facility] [id number]) Occupational Therapy Current Condition Current Condition Evaluation Date 06/02/18 Treatment Diagnosis Lumbar stenosis Diagnosis Onset Date 06/01/18 Post Operative Precautions Lumbar Precautions Log Roll No Twisting Limit Bending Lifting Restriction of 10 lbs Gait Belt above Incisional Area Weight Bearing Status Weight Bearing Status Weight Bear as Tolerated M3 OT- IP Subjective and Pain Start: 06/02/18 12:02 Freq: Status: Active Protocol: Document 06/03/18 10:59 [facility] (Rec: 06/03/18 11:11 [facility] [id number]) OT- Subjective Occupational Therapy Visit Type Type Treatment Note Visit Start Time 09:54 Visit Stop Time 10:44 Total Visit Minutes 50 Occupational Therapy Visit Comments Patient Comments Pt, pt's and son present for family training with PT and OT. OT Pain Assessment Pain When Pain Assessed During Mobility Pain Present Pain Present Pain Reported M4 OT- IP ADL's Start: 06/02/18 12:02 Freq: Status: Active Protocol: Document 06/03/18 10:59 [facility] (Rec: 06/03/18 11:11 [facility] [id number]) OT ADL-Dressing Comments OT Dressing Comments Educated to dress his left leg first and then take out left leg last. Sock aid issued, but to assist initially. Suggested use of urinal at night and to stand for pericare needs. In addition for pt to sit to do LB dressing needs for safety. OT ADL-Bathing Comments OT Bathing Comments Family states to get a shower chair for pt when he is able to shower. M6 OT- IP Functional Cognition Start: 06/02/18 12:02 Freq: Status: Active Protocol: Document 06/03/18 10:59 [facility] (Rec: 06/03/18 11:11 [facility] [id number]) Cognitive Factors Limiting Selfcare Function Cognitive Ability Level of Alertness Alert Patient Orientation Name Year Place Attention Span Ability Capable of Focused Attention Unable to Sustain Attention Ability to Follow Commands Able to Follow One Step Commands Memory Description Short Term Impaired Safety Awareness Decreased Ability to Apply Precautions Underestimates Need for Assistance Problem Solving Ability Needs Assist to Identify Solutions Cognitive Comments Cognitive Assessment Comments Pt needing reminders for hand placement, push up from bed/ chair, and concrete commands at this time. M7 OT- IP Mobility and Balance Start: 06/02/18 12:02 Freq: Status: Active Protocol: Document 06/03/18 10:59 [facility] (Rec: 06/03/18 11:11 [facility] [id number]) OT- Bed Mobility Assessment Rolling Type of Rolling Roll to Left Level of Assistance Minimal Assistance Supine to Sit Supine to Sit Assist Moderate Assistance Sit to Supine Sit to Supine Assist Moderate Assistance OT-Transfer Assessment Sit to and From Stand Sit to and from Stand Contact Guard Assistance Minimal Assistance Transfers Transfer Ability Contact Guard Assistance Minimal Assistance Technique Transfer Destination Bed Transfer Technique Stand Step Pivot Devices Transfer Assistive Devices Gait Belt Front Wheeled Walker Comments Mobility Comments Educated family to hold to gait belt especially for turn, steps, and when he tires. Pt's son able to show good safety for bed mobility and need for assist for ADL's. M8 OT- IP Objective Assessments Start: 06/02/18 12:02 Freq: Status: Active Protocol: Document 06/02/18 11:30 [facility] (Rec: 06/02/18 12:34 [facility] [id number]) OT Gross Range of Motion Upper Extremity Range of Motion Assessment Within Functional Limits OT Strength Comments Strength Comments BUE LUE4-/5, RUE4/5 OT Sensation Assessment Comments Summary Comments WFL for light touch. M9 OT- IP Assessment and Plan Start: 06/02/18 12:02 Freq: Status: Active Protocol: Document 06/03/18 10:59 [facility] (Rec: 06/03/18 11:11 [facility] [id number]) OT Summary Assessment and Plan Goals Days to Meet Goals 6 Frequency of Treatment Frequency Of Treatment Once a Day Treatment Plan OT Treatment Plan ADL Training Functional Cognition Training Functional Mobility Patient/Family Education Discharge Planning Other Treatment Recommendations and Next Standing by sink for grooming, Treatment Focus practice AED for LB dressing, caregiver training. Discharge Recommendations OT Discharge Recommendations Home with Assistance Home Equipment Needs shower chair, HHSP, railings by the steps
[2018-06-03 11:50] VITALS: BP 111/57; PULSE 69; RESP 16; TEMP 36.5; O2SAT 99
--- NOTE | 2018-06-03 12:20 | PM.PNPO.1 ---
Subjective Date Patient Seen: 06/03/18 Time Patient Seen: 12:20 Interval history: Patient seen bedside s/p TLIF POD #2. Doing well, has been up with PT but states that his pain ranges from a 6-9. It rarely goes below a six. Denies CP, SOB. Exam Vital Signs (past 8 hours): - 06/03/18 05:57 06/03/18 07:20 Temperature 98.0 F 98.1 F Pulse Rate 59 L 65 Respiratory Rate 16 14 Blood Pressure 87/52 L 112/65 Pulse Oximetry 98 94 Oxygen Delivery Method Room Air Oxygen Flow Rate 0 Narrative Exam Narrative: WDWN NAD A&Ox3. Spinal dressing CDI, no neurologic deficits noted, NVI in bilateral lower extremities. Calves are soft and compressible. Objective Labs Result Diagrams: 06/03/18 07:43 06/03/18 07:43 Labs: Laboratory Results - last 24 hr 06/03/18 06/03/18 07:43 07:43 Hgb 8.9 L Hct 25.8 L Sodium 140 Potassium 3.7 Chloride 105 Carbon Dioxide 30 BUN 17 Creatinine 0.80 Estimated GFR > 60.0 BUN/Creatinine Ratio 21.3 Glucose 118 H Calcium 8.3 L Assessment & Plan Post-op Postoperative Procedures Operation Date: 06/01/18 07:45 Actual Procedures Side Surgeon p L2-S1 Laminectomy with Ant/Post. Instrumented Fusion w/ Bone Graft Not Applicable Garry Juárez MD POD #2 from the above procedure. Continue with PT, change [place] to oxycodone q3 to help with pain. D/C hopefully tomorrow. Time Spent With Patient less than 15 minutes Quality VTE Deep Vein Thrombosis/Pulmonary Embolism Present on Admission: No
[2018-06-03] MEDS: SODIUM CHLORIDE 0.9% 1,000 ML 100 ML IV ×2 (14:38→23:45)
[2018-06-03 15:20] VITALS: BP 107/60; PULSE 63; RESP 17; TEMP 36.6; O2SAT 97
--- NOTE | 2018-06-03 15:29 | PT.IPTN ---
Current Diagnoses Spinal stenosis, lumbar region with neurogenic claudication (06/01/18) Strain of muscle, fascia and tendon of lower back, subsequent encounter (06/01/18) Other specified postprocedural states (06/01/18) Surgery Performed Operation Date: 06/01/18 07:45 Actual Procedures p L2-S1 Laminectomy with Ant/Post. Instrumented Fusion w/ Bone Graft(Not Applicable) - Garry Juárez MD Physical Therapy Treatment Note M2 PT-IP Current Condition Start: 06/02/18 12:02 Freq: NEEDED Status: Active Protocol: Document 06/02/18 10:41 AB (Rec: 06/02/18 12:26 AB [email or web address]) Physical Therapy Current Condition Current Condition Evaluation Date 06/02/18 Treatment Diagnosis s/p L2-5 ant fusion w/cage, post fusion& screws; L5S1 TLIF ;diff in walking Onset Date 06/01/18 Precautions Lumbar Precautions Log Roll No Twisting Limit Bending Lifting Restriction of 10 lbs Gait Belt above Incisional Area M3 PT-IP Subjective Start: 06/02/18 12:02 Freq: NEEDED Status: Active Protocol: Document 06/03/18 15:28 AB (Rec: 06/03/18 15:29 AB [email or web address]) Subjective Physical Therapy Visit Type Type Patient Refusal Notes pt refused PT. stated that he just wants to rest for the afternoon and is finding more pain on his back.
[2018-06-03] MEDS: OXYCODONE IR 10 MG TABLET PO ×3 (17:15→22:39)
[2018-06-03] MEDS: ATORVASTATIN 20 MG TABLET 40 MG PO (17:15)
[2018-06-03] MEDS: FERROUS SULFATE 325 MG TABLET PO (17:15)
[2018-06-03] MEDS: ISOSORBIDE MONONITRATE ER 30 MG TABLET PO (17:15)
[2018-06-03] MEDS: SENNOSIDES 8.6 MG TABLET 17.2 MG PO (20:01)
[2018-06-03] MEDS: [UNRECOGNIZED DRUG - REMARK] PO (20:02)
[2018-06-03 20:05] VITALS: BP 110/59; PULSE 63; RESP 17; TEMP 36.9; O2SAT 98
[2018-06-03 23:58] VITALS: BP 144/59; PULSE 73; RESP 16; TEMP 36.5; O2SAT 96
--- NOTE | 2018-06-04 00:50 | PC.NURSE ---
Addendum entered by Erna Moncada R.N. 06/04/18 06:20: Refused MOM this morning. Awake watching TV. Pain is currently 5/10 just above right hip. Original Note: Addendum entered by Erna Moncada R.N. 06/04/18 05:05: Medicated with Oxycodone for 5/10 pain and assisted to reposition. Original Note: Patient is alert and oriented. Breath sounds CTA with RA sat of 93%. HRR and BP improved to 144/59. Denies nausea. BT hypoactive but is passing flatus. Has not had BM since 05/31 so recommended MOM in a.m. if no BM during the night. Complains of mild dysuria but states it is improving. Get up to bathroom to void. Able to move self in bed but likes to have staff assist him. Out of bed with walker and 1 assist. Dressing to mid/lower back with serosanguinous drainage covering 25% of dressing but no leakage. Dressing to left hip is CDI. States back pain is currently 4/10 and tolerable. Persistent numbness in left toes but states right numbness is lessening. Wearing bilateral footie SCD's. Fall risk score is high and bed alarm is activated
[2018-06-04] MEDS: OXYCODONE IR 10 MG TABLET PO ×2 (01:36→05:01)
[2018-06-04 03:56] LABS: Hematocrit 24.6 % (41-53); Hemoglobin 8.3 g/dL (13.5-17.5)
[2018-06-04 06:08] VITALS: BP 108/56; PULSE 66; RESP 16; TEMP 36.6; O2SAT 96
[2018-06-04 07:10] VITALS: BP 132/70; PULSE 70; RESP 16; TEMP 36.7; O2SAT 95
--- NOTE | 2018-06-04 07:44 | PM.PNPO.1 ---
Subjective Date Patient Seen: 06/04/18 Time Patient Seen: 07:44 Interval history: Pain is about 5/10 across the back. Legs are fine. He is mobilizing well. He has had some nausea with the oxycodone and wants to go back to Vicodin. No shortness of breath or chest pain or dizziness. Exam Vital Signs (past 8 hours): - 06/03/18 23:58 06/04/18 06:08 Temperature 97.7 F 97.9 F Pulse Rate 73 66 Respiratory Rate 16 16 Blood Pressure 144/59 H 108/56 L Pulse Oximetry 96 96 Oxygen Delivery Method Room Air Oxygen Flow Rate 0 Back/Spine/Pelvis Other: Moderate drainage on dressing that was changed yesterday afternoon. 5/5 motor both lower extremities. Objective Labs Result Diagrams: 06/04/18 03:35 06/03/18 07:43 Labs: Laboratory Results - last 24 hr 06/03/18 06/03/18 06/04/18 07:43 07:43 03:35 Hgb 8.9 L 8.3 L Hct 25.8 L 24.6 L Sodium 140 Potassium 3.7 Chloride 105 Carbon Dioxide 30 BUN 17 Creatinine 0.80 Estimated GFR > 60.0 BUN/Creatinine Ratio 21.3 Glucose 118 H Calcium 8.3 L Assessment & Plan Post-op (1) Acute blood loss anemia: Current Visit: Yes Status: Acute Postoperative Procedures Operation Date: 06/01/18 07:45 Actual Procedures Side Surgeon p L2-S1 Laminectomy with Ant/Post. Instrumented Fusion w/ Bone Graft Not Applicable Garry Juárez MD He is recovering very well from his surgery. He still has some drainage but it is definitely slowing down. He has had some acute blood loss anemia but is asymptomatic and I would not transfuse. Continue mobilization with physical therapy and hopefully discharge home later today. Postoperative plan: routine post-op care Time Spent With Patient less than 15 minutes Quality VTE Deep Vein Thrombosis/Pulmonary Embolism Present on Admission: No
[2018-06-04] MEDS: HYDROCODONE/ACET 5/325 TABLET 2 TAB PO ×4 (08:27→20:15)
[2018-06-04] MEDS: DOCUSATE 100 MG CAPSULE PO ×2 (08:27→20:14)
[2018-06-04] MEDS: FERROUS SULFATE 325 MG TABLET PO ×3 (08:28→16:50)
[2018-06-04] MEDS: CELECOXIB 200 MG CAPSULE PO ×2 (08:28→20:14)
[2018-06-04] MEDS: ASPIRIN EC 81 MG TABLET PO (08:28)
[2018-06-04] MEDS: MAGNESIUM HYDROXIDE 30 ML UDC PO ×2 (08:29→20:14)
--- NOTE | 2018-06-04 09:49 | PT.IPTN ---
Current Diagnoses Acute posthemorrhagic anemia (06/01/18) Spinal stenosis, lumbar region with neurogenic claudication (06/01/18) Strain of muscle, fascia and tendon of lower back, subsequent encounter (06/01/18) Other specified postprocedural states (06/01/18) Surgery Performed Operation Date: 06/01/18 07:45 Actual Procedures p L2-S1 Laminectomy with Ant/Post. Instrumented Fusion w/ Bone Graft(Not Applicable) - Garry Juárez MD Physical Therapy Treatment Note M2 PT-IP Current Condition Start: 06/02/18 12:02 Freq: NEEDED Status: Active Protocol: Document 06/02/18 10:41 AB (Rec: 06/02/18 12:26 AB [email or web address]) Physical Therapy Current Condition Current Condition Evaluation Date 06/02/18 Treatment Diagnosis s/p L2-5 ant fusion w/cage, post fusion& screws; L5S1 TLIF ;diff in walking Onset Date 06/01/18 Precautions Lumbar Precautions Log Roll No Twisting Limit Bending Lifting Restriction of 10 lbs Gait Belt above Incisional Area M3 PT-IP Subjective Start: 06/02/18 12:02 Freq: NEEDED Status: Active Protocol: Document 06/04/18 09:32 LJ (Rec: 06/04/18 09:49 LJ [id number]) Subjective Physical Therapy Visit Type Type Treatment Note Visit Start Time 09:00 Visit Stop Time 09:30 Total Visit Minutes 30 Therapy Pain Assessment Pain Present Pain Present Denied Pain M4 PT-IP Mobility and Gait Start: 06/02/18 12:02 Freq: NEEDED Status: Active Protocol: Document 06/04/18 09:32 LJ (Rec: 06/04/18 09:49 LJ [id number]) PT-Transfer Assessment Sit to and From Stand Sit to and from Stand Standby Assistance Equipment Transfer Assistive Device Gait Belt Front Wheeled Walker Transfer Ability Level of Assist Standby Assistance Comments Mobility Comments Pt SBA for sit<>stand to/from chair Gait Assessment Gait Gait Assistance Required: Contact Guard Assist Able to Maintain Weight Bearing Status Yes During Gait Assistive Devices Assistive Device Gait Belt Front Wheeled Walker Orthotic/Prosthetic Devices or Brace: No Gait Deviations General Gait Pattern Decreased Stride Length Narrow Based Gait Factors Limiting Gait Function Factors Limiting Gait Function Decreased Activity Tolerance Decreased Strength Comments Gait Comments Pt ambulated 230' with SGA and cues for looking forward and erect posture. PT-Balance Assessment Sitting Balance and Reactions Static Sitting Balance Ability Good Dynamic Sitting Balance Ability Good Standing Balance and Reactions Static Standing Balance Ability Good Dynamic Standing Balance Ability Good M5 PT-IP Objective Assessments Start: 06/02/18 12:02 Freq: NEEDED Status: Active Protocol: Document 06/02/18 14:05 AB (Rec: 06/02/18 16:59 AB [email or web address]) Orientation Orientation/Cognition Level of Alertness Alert M6 PT-IP Treatment Start: 06/02/18 12:02 Freq: NEEDED Status: Active Protocol: Document 06/04/18 09:32 LJ (Rec: 06/04/18 09:49 LJ [id number]) Physical Therapy Treatment Exercises Exercises Ankle Pumps Gluteal Sets Quad Sets Education Education Provided Safety M7 PT-IP Assessment and Plan Start: 06/02/18 12:02 Freq: NEEDED Status: Active Protocol: Document 06/04/18 09:32 LJ (Rec: 06/04/18 09:49 LJ [id number]) PT Summary Assessment and Plan Potential Rehabilitation Potential Good Status of Condition at Evaluation Evolving Summary Impairments Strength Activity Tolerance Progress Towards Goals Progressing Toward Goals Assessment Summary Pt ambulated 230' with no complaint of pain or fatigue. Unable to lift head to normal position due to cervical prior fusion but is able to navigate safely. Frequency of Treatment Frequency Of Treatment Twice a Day Treatment Plan Physical Therapy Treatment Plan Bed Mobility Training Gait Training Therapeutic Exercise Recommendations To Nursing Amount of Assist Needed Standby Assistance Discharge Recommendations PT Discharge Recommendations Home with Assistance
[2018-06-04] MEDS: SODIUM CHLORIDE 0.9% 1,000 ML 100 ML IV ×2 (11:20→21:29)
[2018-06-04] MEDS: hydrOXYzine pamoate 25 MG CAPSULE PO (11:22)
[2018-06-04 11:41] VITALS: BP 115/71; PULSE 70; RESP 15; TEMP 36.5; O2SAT 98
--- NOTE | 2018-06-04 14:41 | OT.IP.TRT ---
Current Diagnoses Acute posthemorrhagic anemia (06/01/18) Spinal stenosis, lumbar region with neurogenic claudication (06/01/18) Strain of muscle, fascia and tendon of lower back, subsequent encounter (06/01/18) Other specified postprocedural states (06/01/18) Surgery Performed Operation Date: 06/01/18 07:45 Actual Procedures p L2-S1 Laminectomy with Ant/Post. Instrumented Fusion w/ Bone Graft(Not Applicable) - Garry Juárez MD Occupational Therapy Treatment Note M2 OT-IP Current Condition Start: 06/02/18 12:02 Freq: Status: Active Protocol: Document 06/02/18 11:30 [facility] (Rec: 06/02/18 12:34 [facility] [id number]) Occupational Therapy Current Condition Current Condition Evaluation Date 06/02/18 Treatment Diagnosis Lumbar stenosis Diagnosis Onset Date 06/01/18 Post Operative Precautions Lumbar Precautions Log Roll No Twisting Limit Bending Lifting Restriction of 10 lbs Gait Belt above Incisional Area Weight Bearing Status Weight Bearing Status Weight Bear as Tolerated M3 OT- IP Subjective and Pain Start: 06/02/18 12:02 Freq: Status: Active Protocol: Document 06/04/18 14:38 [facility] (Rec: 06/04/18 14:40 [facility] [email or web address]) OT- Subjective Occupational Therapy Visit Type Type Patient Unavailable Notes Pt states waiting to have a bowel movement and still concerned about his pain levels. INTERPRETER came in and pt agreeable to get up and move with INTERPRETER to see if it would help for getting his bowels moving. Therefore to see pt tomorrow. Pt's states has good understanding for all OT needs and already has all the equipment.
[2018-06-04 15:45] VITALS: BP 111/63; PULSE 68; RESP 18; TEMP 36.4; O2SAT 97
--- NOTE | 2018-06-04 16:01 | PT.IPTN ---
Current Diagnoses Acute posthemorrhagic anemia (06/01/18) Spinal stenosis, lumbar region with neurogenic claudication (06/01/18) Strain of muscle, fascia and tendon of lower back, subsequent encounter (06/01/18) Other specified postprocedural states (06/01/18) Surgery Performed Operation Date: 06/01/18 07:45 Actual Procedures p L2-S1 Laminectomy with Ant/Post. Instrumented Fusion w/ Bone Graft(Not Applicable) - Garry Juárez MD Physical Therapy Treatment Note M2 PT-IP Current Condition Start: 06/02/18 12:02 Freq: NEEDED Status: Active Protocol: Document 06/02/18 10:41 AB (Rec: 06/02/18 12:26 AB [email or web address]) Physical Therapy Current Condition Current Condition Evaluation Date 06/02/18 Treatment Diagnosis s/p L2-5 ant fusion w/cage, post fusion& screws; L5S1 TLIF ;diff in walking Onset Date 06/01/18 Precautions Lumbar Precautions Log Roll No Twisting Limit Bending Lifting Restriction of 10 lbs Gait Belt above Incisional Area M3 PT-IP Subjective Start: 06/02/18 12:02 Freq: NEEDED Status: Active Protocol: Document 06/04/18 13:10 LJ (Rec: 06/04/18 16:01 LJ [email or web address]) Subjective Physical Therapy Visit Type Type Treatment Note Visit Start Time 14:30 Visit Stop Time 15:10 Total Visit Minutes 40 Therapy Pain Assessment Pain Present Pain Present Denied Pain M4 PT-IP Mobility and Gait Start: 06/02/18 12:02 Freq: NEEDED Status: Active Protocol: Document 06/04/18 13:10 LJ (Rec: 06/04/18 16:01 LJ [email or web address]) PT-Bed Mobility Assessment Rolling Type of Rolling Log Rolling Level of Assist Standby Assistance Sit to Supine Sit to Supine Standby Assistance Scooting Scooting to Edge of Bed Standby Assistance PT-Transfer Assessment Sit to and From Stand Sit to and from Stand Standby Assistance Equipment Transfer Assistive Device Gait Belt Front Wheeled Walker Transfers Transfer Destination Bed Transfer Ability Level of Assist Standby Assistance Comments Mobility Comments Pt able to transfer into bed with appropriate use of precautions with SBA. Gait Assessment Gait Gait Assistance Required: Standby Assistance Distance (Feet) (feet) 200 Able to Maintain Weight Bearing Status Yes During Gait Assistive Devices Assistive Device Gait Belt Front Wheeled Walker Gait Deviations General Gait Pattern Decreased Stride Length Decreased Feet Clearance Comments Gait Comments Pt improved body alignment and positioning with FWW during gait. Educated in use of stabilizer muscles during gait and need to lift feet use heel strike as well as lift chin and look forward. M5 PT-IP Objective Assessments Start: 06/02/18 12:02 Freq: NEEDED Status: Active Protocol: Document 06/02/18 14:05 AB (Rec: 06/02/18 16:59 AB [email or web address]) Orientation Orientation/Cognition Level of Alertness Alert M6 PT-IP Treatment Start: 06/02/18 12:02 Freq: NEEDED Status: Active Protocol: Document 06/04/18 13:10 LJ (Rec: 06/04/18 16:01 LJ [email or web address]) Physical Therapy Treatment Education Education Provided Precautions Safety Other Treatments Other Treatment Performed Pt educated in performing glute and abdominal sets while seated and supine. Instructed in bridging to reposition in bed to achieve alignment. M7 PT-IP Assessment and Plan Start: 06/02/18 12:02 Freq: NEEDED Status: Active Protocol: Document 06/04/18 13:10 LJ (Rec: 06/04/18 16:01 LJ [email or web address]) PT Summary Assessment and Plan Potential Rehabilitation Potential Good Status of Condition at Evaluation Evolving Summary Impairments Pain Activity Tolerance Goals Bed Mobility Goal Independent Transfer Goal Independent Gait Goal Independent Frequency of Treatment Frequency Of Treatment Twice a Day Treatment Plan Physical Therapy Treatment Plan Gait Training Coordination Retraining Recommendations To Nursing Amount of Assist Needed Standby Assistance Discharge Recommendations PT Discharge Recommendations Home with Assistance
[2018-06-04] MEDS: ISOSORBIDE MONONITRATE ER 30 MG TABLET PO (16:16)
[2018-06-04] MEDS: ATORVASTATIN 20 MG TABLET 40 MG PO (16:50)
[2018-06-04] MEDS: [UNRECOGNIZED DRUG - REMARK] PO (20:14)
[2018-06-04] MEDS: SENNOSIDES 8.6 MG TABLET 17.2 MG PO (20:14)
[2018-06-04 20:55] VITALS: BP 111/68; PULSE 63; RESP 17; TEMP 36.8; O2SAT 100
[2018-06-04 23:20] VITALS: BP 138/69; PULSE 74; RESP 18; TEMP 36.2; O2SAT 100
[2018-06-05] MEDS: HYDROCODONE/ACET 5/325 TABLET 2 TAB PO ×3 (00:22→10:03)
[2018-06-05] MEDS: hydrOXYzine pamoate 25 MG CAPSULE PO (00:25)
[2018-06-05 03:19] VITALS: BP 103/64; PULSE 59; RESP 18; TEMP 36; O2SAT 97
--- NOTE | 2018-06-05 06:14 | PC.NURSE ---
pt ambulated in the hallways. drank some prune juice. dressing was saturated. drsng changed at 0600.
[2018-06-05 07:35] VITALS: BP 104/67; PULSE 76; RESP 18; TEMP 36.2; O2SAT 98
--- NOTE | 2018-06-05 08:21 | PM.PNPO.1 ---
Subjective Date Patient Seen: 06/05/18 Time Patient Seen: 08:22 Interval history: He is doing very well. Still having to have his dressing changed at night. Exam Vital Signs (past 8 hours): - 06/05/18 03:19 Temperature 96.8 F L Pulse Rate 59 L Respiratory Rate 18 Blood Pressure 103/64 Pulse Oximetry 97 Oxygen Delivery Method Room Air Oxygen Flow Rate 0 Back/Spine/Pelvis Other: 5/5 motor both lower extremities. Moderate serosanguineous drainage on dressing Objective Labs Result Diagrams: 06/04/18 03:35 06/03/18 07:43 Assessment & Plan Post-op Postoperative Procedures Operation Date: 06/01/18 07:45 Actual Procedures Side Surgeon p L2-S1 Laminectomy with Ant/Post. Instrumented Fusion w/ Bone Graft Not Applicable Garry Juárez MD he is quite comfortable and mobilizing well. I think it is fine for discharge home. As to the drainage, he did the same thing with his last surgery and he feels comfortable having his wifejust changing the dressing a few times a day. It is continuing to lessen and should dry up over the next several days. Quality VTE Deep Vein Thrombosis/Pulmonary Embolism Present on Admission: No
--- NOTE | 2018-06-05 08:27 | P.DS_ITS ---
History of Present Illness Date Patient Seen: 06/05/18 Time Patient Seen: 08:26 Chief complaint: LUMBAR ANT FUSION & POST FUSION *CPT'S IN NOTES* Narrative: Patient was admitted for lumbar stenosis with radiculopathy Discharge Providers Date of admission: 06/01/18 06:36 Primary care physician: Denia Howard PA-C Consults: 06/01/18 17:00 Consult to Occupational Therapy Evaluate & Treat Comment: Physician Instructions: Evaluate and treat Consult to Physical Therapy Evaluate & Treat Comment: Physician Instructions: Evaluate and Treat Discharge provider: Garry Juárez MD Summary Discharge Diagnosis: Lumbar stenosis Hospital Course: he underwent L2 through S1 laminectomy and anterior and posterior fusion on 06/01/2018. He did very well postoperatively and made gradual improvement with physical therapy. His pain was under control by date of discharge. He did have persistent drainage of serosanguineous drainage and some blood loss anemia but he was asymptomatic from this. After his 1st lumbar laminectomy he continued to drain for almost a week and his had changes dressings and this is almost exactly the same thing and he feels comfortable with this. Time Spent with Patient Less than 30 minutes Exam Vital Signs (past 8 hours): - 06/05/18 03:19 Temperature 96.8 F L Pulse Rate 59 L Respiratory Rate 18 Blood Pressure 103/64 Pulse Oximetry 97 Oxygen Delivery Method Room Air Oxygen Flow Rate 0 Const Orientation: alert and oriented x3 Back/Spine/Pelvis Other: moderate drainage on dressing Objective Labs Result Diagrams: 06/04/18 03:35 06/03/18 07:43 Discharge Plan Discharge Plan Patient Disposition: Home Discharge Med Rec/Prescriptions Prescriptions: New hydrocodone-acetaminophen 5-325 mg Tablet See Label Instructions .ROUTE .COMPLEX PRN (Reason: Pain, Severe (7-10)) Qty : 40 RF: 0 hydroxyzine pamoate 25 mg Capsule 25 mg PO Q4HR PRN (Reason: spasm) Qty: 20 RF: 0 Continue atorvastatin 40 mg Tablet 40 mg PO QPM RF: 0 metoprolol succinate 50 mg Tablet Extended Release 24 Hr 50 mg PO QPM RF: 0 isosorbide mononitrate 30 mg Tablet Extended Release 24 Hr 30 mg PO QPM RF: 0 aspirin 81 mg Tablet,Delayed Release (Dr/Ec) 81 mg PO DAILY RF: 0 tramadol 50 mg Tablet 1 - 3 tab PO PRN PRN (Reason: pain) RF: 0 nitroglycerin 0.4 mg Tablet, Sublingual 0.4 mg SUBLINGUAL PRN PRN (Reason: Chest Pain) RF: 0 omeprazole 20 mg Capsule,Delayed Release(Dr/Ec) 20 mg PO QPM RF: 0 ramipril 10 mg Capsule 10 mg PO QPM RF: 0 Provider Discharge Instructions Activity: limited BLT 10 lbs max Skin/Wound/Dressing Care Dressing: change dressing prn, may shower POD #5 (tomorrow) Discharge Data Primary Care Provider: Denia Howard Attending Provider: Garry Juárez Admit Date/Time: 06/01/18 06:36 Quality VTE Deep Vein Thrombosis/Pulmonary Embolism Present on Admission: No
[2018-06-05] MEDS: DOCUSATE 100 MG CAPSULE PO (08:37)
[2018-06-05] MEDS: FERROUS SULFATE 325 MG TABLET PO (08:37)
[2018-06-05] MEDS: CELECOXIB 200 MG CAPSULE PO (08:37)
[2018-06-05] MEDS: ASPIRIN EC 81 MG TABLET PO (08:37)
--- NOTE | 2018-06-05 09:25 | PT.IPTN ---
Current Diagnoses Acute posthemorrhagic anemia (06/01/18) Spinal stenosis, lumbar region with neurogenic claudication (06/01/18) Strain of muscle, fascia and tendon of lower back, subsequent encounter (06/01/18) Other specified postprocedural states (06/01/18) Surgery Performed Operation Date: 06/01/18 07:45 Actual Procedures p L2-S1 Laminectomy with Ant/Post. Instrumented Fusion w/ Bone Graft(Not Applicable) - Garry Juárez MD Physical Therapy Treatment Note M2 PT-IP Current Condition Start: 06/02/18 12:02 Freq: NEEDED Status: Discharge Protocol: Document 06/02/18 10:41 AB (Rec: 06/02/18 12:26 AB [email or web address]) Physical Therapy Current Condition Current Condition Evaluation Date 06/02/18 Treatment Diagnosis s/p L2-5 ant fusion w/cage, post fusion& screws; L5S1 TLIF ;diff in walking Onset Date 06/01/18 Precautions Lumbar Precautions Log Roll No Twisting Limit Bending Lifting Restriction of 10 lbs Gait Belt above Incisional Area M3 PT-IP Subjective Start: 06/02/18 12:02 Freq: NEEDED Status: Discharge Protocol: Document 06/05/18 09:25 GGD (Rec: 06/05/18 11:32 GGD [id number]) Subjective Physical Therapy Visit Type Type Treatment Note Visit Start Time 09:00 Visit Stop Time 09:25 Total Visit Minutes 25 Physical Therapy Visit Comments Patient Comments pt states that he feels ready to go home. Therapy Pain Assessment Pain When Pain Assessed At Rest Pain Present Pain Present Pain Reported Location Lower Back Intensity 4 Scale Used Numeric (1 - 10) M4 PT-IP Mobility and Gait Start: 06/02/18 12:02 Freq: NEEDED Status: Discharge Protocol: Document 06/05/18 09:25 GGD (Rec: 06/05/18 11:32 GGD [id number]) PT-Bed Mobility Assessment Rolling Type of Rolling Log Rolling Level of Assist Standby Assistance Sit to Supine Sit to Supine Standby Assistance Scooting Scooting to Edge of Bed Standby Assistance PT-Transfer Assessment Sit to and From Stand Sit to and from Stand Standby Assistance Equipment Transfer Assistive Device Gait Belt Front Wheeled Walker Transfers Transfer Destination Bed Transfer Ability Level of Assist Standby Assistance Gait Assessment Gait Gait Assistance Required: Standby Assistance Distance (Feet) (feet) 250 Able to Maintain Weight Bearing Status Yes During Gait Assistive Devices Assistive Device Gait Belt Front Wheeled Walker Gait Deviations General Gait Pattern Decreased Stride Length Decreased Feet Clearance Stair Climbing Assessment Evaluation Level of Assist On Stairs Contact Guard Assistance Devices Stair Climbing Assistive Devices Right Railing Technique/Endurance Stair Climbing Direction Ascend and Descend Stair Climbing Technique Step to Step Number of Steps Climbed 3 Query Text: Stair Climbing Set # Repetitions (reps) 1 M5 PT-IP Objective Assessments Start: 06/02/18 12:02 Freq: NEEDED Status: Discharge Protocol: Document 06/02/18 14:05 AB (Rec: 06/02/18 16:59 AB [email or web address]) Orientation Orientation/Cognition Level of Alertness Alert M6 PT-IP Treatment Start: 06/02/18 12:02 Freq: NEEDED Status: Discharge Protocol: Document 06/05/18 09:25 GGD (Rec: 06/05/18 11:32 GGD [email or web address]) Physical Therapy Treatment Education Education Provided Precautions Safety M7 PT-IP Assessment and Plan Start: 06/02/18 12:02 Freq: NEEDED Status: Discharge Protocol: Document 06/05/18 09:25 GGD (Rec: 06/05/18 11:32 GGD [id number]) PT Summary Assessment and Plan Summary Assessment Summary Pt improving with moblity. He was safe and stable with gait and stairs. Frequency of Treatment Frequency Of Treatment Twice a Day Recommendations To Nursing Amount of Assist Needed Standby Assistance Discharge Recommendations PT Discharge Recommendations Home with Assistance
--- NOTE | 2018-06-05 10:14 | PC.NURSE ---
Patient ready for discharge to home with . Dressing changed. Discharge instructions and home care handouts reviewed with patient and his . Patient and his state understanding and have no further questions or concerns at this time. Escorted out with all belongings via wheelchair by [facility].
--- NOTE | 2018-06-05 13:59 | CM.DPC ---
DC Note: Pt DC home today as expected, cleared by PT for safe DC home. Pt eager to return home, aware and agreeable to plan. 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 JW
== END 2018-06-05 10:15 | disposition home or self-care (01) | DRG 454 ==
PROVIDERS: Physician Assistant; Physician Assistant Surgical; Admitting Provider Orthopaedic Surgery; PCP Physician Assistant Medical; Visit Provider Orthopaedic Surgery
PROC: 0SG00A0 Fusion of Lumbar Vertebral Joint with Interbody Fusion Device, Anterior Approach, Anterior Column, Open Approach (ICD-10-PCS; CPT 22558; principal; 2018-06-01 07:45)
DX: M48.062 Spinal stenosis, lumbar region with neurogenic claudication (principal); D62 Acute posthemorrhagic anemia; S39.012D Strain of muscle, fascia and tendon of lower back, subsequent encounter; I10 Essential (primary) hypertension; E66.9 Obesity, unspecified; K21.9 Gastro-esophageal reflux disease without esophagitis; I25.10 Atherosclerotic heart disease of native coronary artery without angina pectoris; Z95.828 Presence of other vascular implants and grafts; M54.16 Radiculopathy, lumbar region
CPT/HCPCS: 36415; 72100; 76001; 80048; 85014; 85018; 94760; 97116; 97162; 97165; 97530; 97535; C1776; J0330; J0595; J1100; J1170; J2250; J2274; J2405; J2704; J3010